=== PATIENT | female | born 2000 | race Caucasian/White ===

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

== ENCOUNTER 2022-05-15 12:01 | Emergency (ER) | payer OTHER ==
[~2022-05-15] VITALS: Ht 165.1 cm; Wt 65.8 kg
--- NOTE | 2022-05-15 12:13 | NUR ---
PATIENT AMBULATED TO BED 4 WITH STEADY GAIT.
[2022-05-15 12:21] VITALS: BP 133/77
--- NOTE | 2022-05-15 12:24 | NUR ---
21 y/o female bib boyfriend from home, c/o abd pain, epigastric pain for 1 week, worsened this morning. pt states she had similar pain 1 year ago and was dx with gallstones. had f/u with pcp for sx, but was not contacted back. pt states she has also had rectal bleeding with bm that started last night with nausea and constipation. a&ox4, ambulates with even and steady gait. denies fever, chills, cough, sob, and cp. pmh: gallstones 1 year ago bel[facility]
--- NOTE | 2022-05-15 12:53 | NUR ---
Ultrasound at bedside.
[2022-05-15 13:30] LABS: BASOPHILS % (AUTO) 0.6 % (0.0-2.0); EOSINOPHILS % (AUTO) 0.9 % (0.0-4.0); HEMATOCRIT 44.9 % (36-48); HEMOGLOBIN 15.2 g/dL (12.0-16.0); LYMPHOCYTES # (AUTO) 1.9 K/uL (2.5-16.5); LYMPHOCYTES % (AUTO) 34.1 % (20.5-51.1); MEAN CORPUSCULAR HEMOGLOBIN 31 pg (27-31); MEAN CORPUSCULAR HGB CONC 34 g/dL (33-37); MONOCYTES # (AUTO) 0.5 K/uL (0.8-1.0); MONOCYTES % (AUTO) 9.1 % (1.7-9.3); NEUTROPHILS % (AUTO) 55.3 % (42.2-75.2); PLATELET COUNT (AUTO) 224 K/uL (140-450); RED BLOOD CELL COUNT(AUTO) 4.93 MIL/uL (4.20-5.40); RED CELL DISTRIBUTION WIDTH 12.4 % (11.6-13.7); WHITE BLOOD COUNT (AUTO) 5.5 K/uL (4.8-10.8)
[2022-05-15 13:46] LABS: ALBUMIN 3.6 g/dL (3.4-5.0); ANION GAP 9.7 (8-16); CARBON DIOXIDE 26.2 mmol/L (21-32); CREATININE 0.8 mg/dL (0.6-1.3); POTASSIUM 4.9 mmol/L (3.5-5.1); TOTAL BILIRUBIN 0.6 mg/dL (0.0-1.0)
[2022-05-15] MEDS ORDERED: ACET-8386 PO (15:09)
[2022-05-15 15:38] VITALS: BP 129/67
--- NOTE | 2022-05-15 15:40 | NUR ---
dPatient discharged with v/s stable. Written and verbal after care instructions given and explained. Patient alert, oriented and verbalized understanding of instructions. Ambulatory with steady gait. All questions addressed prior to discharge. ID band removed. Patient advised to follow up with PMD. Rx of hydrocodone (sent) given. Patient educated on indication of medication including possible reaction and side effects. Opportunity to ask questions provided and answered.
== END 2022-05-15 15:34 | disposition home or self-care (01) ==
LOC: MED 12:01
DX: K80.20 Calculus of gallbladder without cholecystitis without obstruction (principal)
CPT/HCPCS: 36415; 76705; 80053; 81002; 81025; 82150; 83690; 85025; 99284; Q0092